=== PATIENT | male | born 2000 | race Caucasian/White ===

== ENCOUNTER 2018-04-11 18:58 | Emergency (ER) | payer OTHER ==
[2018-04-11 19:18] VITALS: BP 142/93
--- NOTE | 2018-04-11 19:29 | EDPHY ---
H & P Time Seen by Provider: 04/11/18 19:05 HPI/ROS: HPI Right knee laceration. 17-year-old male by private vehicle. This patient states that he was getting out of a hot tub last night at approximately 10:00 p.m. When he cut his right lateral knee. He is not sure how he did this. He noticed he was bleeding at this time. He presents the emergency department now for wound care. ROS: Constitutional: No fever, no chills. No weakness. Musculoskeletal: No back pain. No neck pain. No extremity pain. Skin: As above. Neurological: No headache. No focal weakness or altered sensation. Past medical history: GERD, migraine headaches. Social history: Here by himself. Denies smoking. Drinks alcohol socially. Physical Exam: General Appearance: Alert, no distress. This patient is responding to questions appropriately and in full sentences. This patient appears well- hydrated and well-nourished. ENT, Mouth: Mucous membranes are moist. The pharyngeal tissues are unremarkable. No edema or swelling. No asymmetry suggestive of abscess. No erythema or exudates. Right knee exam: He has a 2 cm laceration through the dermis to the subcutaneous fat right lateral anterior knee. No bony involvement. No tendon involvement. Adjacent to this he has a smaller 1 cm partial-thickness laceration. Please see wound care note for further details. Neurological: Motor sensory function is grossly intact. Cranial nerves are normal. Gait is normal. Skin: Warm and dry, no rashes. As above. Extremities are symmetrical. All joints range without pain or impingement. Psychiatric: No agitation. No depression. Database: EKG: Imaging: Procedures: Procedure: Laceration repair. Verbal consent was obtained from the patient. The 2 cm laceration on the right anterior lateral knee was anesthetized in the usual fashion. The wound was irrigated, draped and explored to its base with a gloved finger. There were no deep structures involved. No tendon injury was identified. No foreign body was identified on gross exploration. The wound was repaired with 3, 4.0 Ethilon sutures placed to loosely approximate wound edges and allow for drainage. The wound repair was tolerated well and there were no complications. The procedure was performed by myself. Procedure: Laceration repair. Verbal consent was obtained from the patient. The 1 cm laceration on the right anterior lateral knee was anesthetized in the usual fashion. The wound was irrigated, draped and explored to its base with a gloved finger. There were no deep structures involved. No tendon injury was identified. No foreign body was identified. The wound was repaired with 2, Ethilon 4.0 interrupted suture placed to loosely approximate the wound edges and allow for drainage. The wound repair was tolerated well and there were no complications. The procedure was performed by myself. Emergency department course: After evaluation of the wound I discussed the fact that because his presentation is delayed from time of injury that he was at a greater risk of infection. We did discussed delayed primary closure but after reviewing the pros and cons of this the patient in shared decision making decided to have the wounds closed as noted above. After suture repair wound care was discussed with the patient. Follow-up and return to emergency department precautions reviewed. All of his questions were answered. He was discharged from the emergency department in good condition. Differential Diagnosis: The differential diagnosis on this patient includes but is not limited to right knee laceration. Retained foreign body, wound infection, tendon injury, significant neurovascular injury unlikely. This represents a partial list of diagnoses considered. These considerations are based on history, physical exam , past history, reassessment and diagnostic testing. Smoking Status: Former smoker Constitutional: Initial Vital Signs Temperature (C) 37.1 C 04/11/18 19:13 Heart Rate 70 04/11/18 19:13 Respiratory Rate 16 04/11/18 19:13 Blood Pressure 142/93 H 04/11/18 19:13 O2 Sat (%) 98 04/11/18 19:13 O2 Delivery Mode Room Air Allergies/Adverse Reactions: No Known Allergies Allergy (Unverified 04/11/18 19:12) Home Medications: Medication Instructions Recorded NK [No Known Home Meds] 04/11/18 Departure - Departure Disposition: Home, Routine, Self-Care Clinical Impression: Laceration of right knee Condition: Good Instructions: Care For Your Stitches (ED), Laceration (ED) Additional Instructions: Read and follow provided instructions. Sutures are to be removed in 10 days. Follow-up with your primary care physician on Saturday for wound check as discussed. Your wounds are at a higher risk of infection and this must be monitored closely. Ibuprofen dosin mg every 6 hours with meals for the next 3 days only. Take only as needed for pain. Return to the emergency department for redness or swelling around the wound edges, drainage of pus, worsening pain, fever or other serious concerns. Referrals: Freddy Rogers [Primary Care Provider] - As per Instructions
== END 2018-04-11 19:45 | disposition home or self-care (01) ==
LOC: CED 18:58
PROC: 0HQKXZZ Repair Right Lower Leg Skin, External Approach (ICD-10-PCS; principal; 2018-04-11)
DX: S81.011A Laceration without foreign body, right knee, initial encounter (principal); W26.9XXA Contact with unspecified sharp object(s), initial encounter; Y92.9 Unspecified place or not applicable; Y99.9 Unspecified external cause status; Y93.9 Activity, unspecified
CPT/HCPCS: 99282-ER